=== PATIENT | female | born 1985 | race African-American/Black ===

== ENCOUNTER 2018-09-05 09:27 | Day surgery (SDC) | payer OTHER ==
[~2018-09-05] VITALS: Ht 152.4 cm; Wt 73.5 kg
[2018-09-05] MEDS ORDERED: LIDOCAINE 2% 100 MG/5 ML UJET TP ONE (12:21)
[2018-09-05] MEDS ORDERED: KETOROLAC 30 MG/ML VIAL ONE (12:26)
== END 2018-09-05 13:17 | disposition home or self-care (01) ==
LOC: MMU 09:27 → MDS 09:27
PROVIDERS: ATTEND Internal Medicine Gastroenterology
DX: K62.5 Hemorrhage of anus and rectum (principal); E78.5 Hyperlipidemia, unspecified; E66.9 Obesity, unspecified; M54.5 Low back pain; Z68.30 Body mass index [BMI] 30.0-30.9, adult; Z87.891 Personal history of nicotine dependence; Z72.89 Other problems related to lifestyle; Z88.0 Allergy status to penicillin; Z88.8 Allergy status to other drugs, medicaments and biological substances
CPT/HCPCS: 45378; 81025; J1885